=== PATIENT | female | born 1985 | race Caucasian/White ===

== ENCOUNTER 2017-12-19 23:03 | Emergency (ER) | payer MEDICAID ==
[~2017-12-19] VITALS: Ht 165.1 cm; Wt 99.8 kg
[2017-12-19 23:09] VITALS: Ht 165.1 cm; Wt 99.8 kg
[2017-12-20] MEDS ORDERED: BENADRYL25 MG PO (02:09)
[2017-12-20] MEDS ORDERED: MEDROL DOSE PACK4 MG PO (02:09)
[2017-12-20 02:20] VITALS: BP 144/79
== END 2017-12-20 02:20 | disposition home or self-care (01) ==
LOC: D.ER 23:03
DX: L50.9 Urticaria, unspecified (principal); T78.40XA Allergy, unspecified, initial encounter; X58.XXXA Exposure to other specified factors, initial encounter; F17.200 Nicotine dependence, unspecified, uncomplicated